=== PATIENT | male | born 1990 | race Caucasian/White ===

== ENCOUNTER 2025-04-27 15:04 | Emergency (ER) | payer BC, SELFPAY ==
[2025-04-27 15:05] VITALS: BP 148/101; PULSE 109; RESP 20; TEMP 35.9; O2SAT 97; BMI 31.5
--- NOTE | 2025-04-27 15:59 | EX.ED.DYSGE1 ---
HPI History of Present Illness Chief Complaint: Suicidal Narrative Narrative: Patient is a 35-year-old male with past medical history of asthma who presents to the emergency department chief complaint of suicidal ideation. He states that lately he has been anxious and depressed and states that he got an argument with his earlier today and notes that he went to the park with a box sorter with a plan to harm himself. When inquired about how he plans to do so he states that he was going to cut his wrist. Patient states that he scared himself out of it decided to call the hotline and they ultimately called the police who showed up to have him brought here for further evaluation management. He states that back in his early 20s during college he was hospitalized for anxiety but states that he is not been hospitalized for suicidal ideations. [facility] Medical History Asthma Home Medications ?Medication ?Instructions ?Recorded ?Last Taken ?Type albuterol sulfate 90 mcg/actuation inhalation 04/27/25 Unknown History aerosol inhaler fluticasone 100 mcg-salmeterol 50 1 ea inhalation BID 04/27/25 Unknown History mcg/dose blistr powdr for inhalation Allergy/AdvReac Type Severity Reaction Status Date / Time No Known Allergies Allergy Verified 04/27/25 15:06 Social History Smoking Status: Never smoker ROS ROS ED ROS Narrative Constitutional: Denies headache, fevers, chills, lightness, Eyes: Denies change in vision double vision blurry vision Cardiovascular: Denies chest pain Respiratory: Denies coughing wheezing shortness of breath Abdomen: Denies abdominal pain nausea vomit diarrhea : Denies any urinary symptoms Neurological: Denies numbness, weakness, tingling Musculoskeletal: Denies back pain Skin: Denies rashes or lesions EXAM Physical Exam Narrative Exam Narrative: General: Patient was lying in bed rest comfortably did not appear to be acute distress Head: Atraumatic, normocephalic Eyes: PERRL bilaterally, EOMI bilaterally Neck: Soft, supple, trachea midline Cardiovascular: Patient patient tachycardic with regular rhythm Respiratory: Clear to auscultation bilaterally Abdomen: Soft, nondistended, nontender to palpation Extremities: +5/5 strength noted in the bilateral upper and lower extremities Neurological: Patient follow commands and that he was at [facility] year is 2024 Skin: Warm, dry, intact no rashes or lesions noted Const Vital Signs: 04/27/25 15:05 04/27/25 16:33 Temperature 96.7 F L Temperature Source Temporal Pulse Rate 109 H Respiratory Rate 20 H 18 Blood Pressure 148/101 H Blood Pressure Mean 116 Pulse Ox 97 Oxygen Delivery Method Room Air MDM MDM MDM Narrative Medical decision making narrative: Patient is a 35-year-old male who presented to the emergency department the chief complaint of suicidal ideation. On the differential diagnose includes but not limited to anxiety, depression, suicidal ideation. Once workup is obtained reviewed social work will evaluate the patient. Patient CBC was reviewed showed no evidence leukocytosis white blood count 10.3, hemoglobin was stable at 15.5, platelet count normal at 382. Patient sodium normal 139, potassium normal at 4, creatinine normal at 1.08. Patient's drug screen was presumptive positive for cannabis alcohol level less than 10. Patient was evaluated by the social work team and they are able to safety plan him. He starts counseling tomorrow. Patient would like to go home and is agreeable this plan all question concerns answered he is discharged home in stable condition. Lab Data Labs: Laboratory Results - last 24 hr 04/27/25 04/27/25 16:00 16:25 WBC 10.3 RBC 5.06 Hgb 15.5 Hct 43.8 MCV 86.6 MCH 30.6 MCHC 35.4 RDW Std Deviation 38.7 RDW Coeff of Rosa 12.2 Plt Count 382 MPV 9.1 Immature Gran % (Auto) 0.500 Neut % (Auto) 61.6 Lymph % (Auto) 25.5 Tyler % (Auto) 7.9 Eos % (Auto) 3.7 Baso % (Auto) 0.8 Absolute Neuts (auto) 6.4 Absolute Lymphs (auto) 2.63 Nucleated RBC % 0 Sodium 139 Potassium 4.0 Chloride 101 Carbon Dioxide 23.7 Anion Gap 15 BUN 21 H Creatinine 1.08 Estim Creat Clear Calc 111.97 Est GFR (MDRD) Non-Af 91 BUN/Creatinine Ratio 19.2 Glucose 96 Calcium 9.7 Urine Opiates Screen NEGATIVE U Buprenorphine Qual NEGATIVE Ur Oxycodone Screen NEGATIVE Urine Methadone Screen NEGATIVE Urine Fentanyl Screen NEGATIVE Ur Barbiturates Screen NEGATIVE Ur Phencyclidine Scrn NEGATIVE Ur Amphetamines Screen NEGATIVE U Benzodiazepines Scrn NEGATIVE Urine Cocaine Screen NEGATIVE U Cannabinoids Screen PRESUMPTIVE POSITIVE Ethyl Alcohol < 10.1 Discharge Plan Triage Chief Complaint: Suicidal ED Provider: Ravi Dawson Dx/Rx/DC Orders Clinical Impression: Depression Prescriptions: No Action fluticasone propion-salmeterol 100-50 mcg/dose blister with device 1 ea inhalation BID albuterol sulfate 90 mcg/actuation HFA aerosol inhaler inhalation Primary Care Provider: MECHELLE HUYNH Referrals: NOT,DEFINED [Non-Staff] - Activity Restrictions/Additional Instructions: Follow-up at your counseling appointment. You were also provided resources by social work. Return with worsening symptoms or any other concerns. Print Language: [place] Disposition Disposition: Home, Self Care
[2025-04-27 16:30] LABS: Absolute Lymphocyte Count 2.63 X10^3/uL (0.83-4.51); Absolute Neutrophil Count 6.4 X10^3/uL (2.0-7.7); Basophil# 0.08 X10^3/uL; Basophil% 0.8 % (0-1); Eosinophil# 0.38 X10^3/uL; Eosinophils% 3.7 % (0-5); Hematocrit 43.8 % (40-54); Hemoglobin 15.5 g/dL (13.0-16.5); Lymphocyte # 2.63 X10^3/ul (0.83-4.51); Lymphocyte % 25.5 % (19-41); Mean Corp Hgb Conc 35.4 g/dL (32-36); Mean Corpuscular Hgb 30.6 pg (27.0-32.0); Mean Corpuscular Volume 86.6 fL (80-94); Mean Platelet Vol. 9.1 fl (6.2-12.0); Monocyte# 0.82 X10^3/uL; Monocyte% 7.9 % (0-10); NRBC Flagged by Analyzer 0 % (0-5); Neutrophil # 6.37 X10^3/uL (2.7-7.7); Neutrophil % 61.6 % (47-70); Platelet Count 382 K/mm3 (150-450); RBC Distribution Width CV 12.2 % (11.6-14.6); RBC Distribution Width SD 38.7 fl (35.1-43.9); Red Blood Count 5.06 M/mm3 (4.6-6.2); White Blood Count 10.3 K/mm3 (4.4-11.0)
[2025-04-27 16:33] VITALS: RESP 18
[2025-04-27 17:12] LABS: Alcohol, Blood (Medical)-Serum < 10.1 mg/dL (<=10.0); Anion Gap 15 (5-15); BUN 21 mg/dL (4-19); BUN/Creat Ratio 19.2 RATIO (10-20); Calcium,Total 9.7 mg/dL (7.6-11.0); Carbon Dioxide 23.7 mmol/L (21.0-32.0); Chloride 101 mmol/L (98-108); Creatinine, Serum 1.08 mg/dL (0.70-1.20); EST Glomerular Filtration Rate 91 (>60); Estimated Creatinine Clearance 111.97 ml/min (50-250); Glucose 96 mg/dL (70-99); Sodium Level 139 mmol/L (133-145)
--- NOTE | 2025-04-27 18:03 | PCA ---
Patient brought in a set of keys with personal belongings. The keys were given to the patients , Lissy Chanel, with patient's permission at 1800 on 04/27/2025.
[2025-04-27 18:18] LABS: Amphetamine Urine NEGATIVE (<1000 ng/mL); Barbiturate Urine NEGATIVE (< 200 ng/mL); Benzodiazepine Urine NEGATIVE (< 200 ng/mL); Buprenorphine Urine NEGATIVE (< 200 ng/mL); Cocaine Urine NEGATIVE (< 300 ng/mL); Fentanyl, Urine NEGATIVE; Methadone Urine NEGATIVE (< 300 ng/mL); Opiates Urine NEGATIVE (< 300 ng/mL); Oxycodone, Urine NEGATIVE (< 100 ng/mL); PCP Urine NEGATIVE (< 25 ng/mL); THC Urine PRESUMPTIVE POSITIVE (< 50 ng/mL)
--- NOTE | 2025-04-27 18:25 | CM.ED ---
Social Work Psychiatric Assessment Reason for consult: suicidal Informant(s): patient, medical records, police via pink slip Chief Complaint: Patient presented to [facility] ED via police and pink slip due to police reportedly finding patient in a park with a jukebox operator. Patient reportedly stated in triage that patient thought about using the jukebox operator for self harm after an argument with patient's . Per Dr. Dawson's note, patient had a plan to harm self by cutting patient's wrist. Patient states scaring self, calling the suicide hotline, and then being transported to [facility] ED via police. Patient stated not being able to follow through with cutting patient's wrist due to struggling with RNs drawing blood for testing. Patient endorsed sleeping well and patient endorsed not having not having much to eat the last few days. Patient denied having hallucinations or delusions, as well as denied family history of suicide. Patient stated feeling hopeless and helpless. Patient reported feeling as if patient was shoved in a corner by the fight with patient's and feeling a sense of shame, guilt, and disappointment in self when patient was choosing suicide. Patient stated how patient's cheondoism beliefs are what patient is holding onto the most when choosing not to engage in suicidal behaviors. Patient stated multiple times during conversation that patient really just miss my parents and I would never want to leave my son so early in his life. Patient stated knowing the risks and consequences of patient's behaviors, being grateful for the support system patient had today, and being disappointed in self for not hitting the brakes sooner. Marital/Social History/Sexual Orientation/Gender Identity: patient is a 35 year old straight male who has been to patient's for 5 years. Patient reports having a 16 month old son. Patient reports being Judaism. Patient reported having difficulty in patient's marriage and feels as if patient and patient's will get a divorce soon due to discussions about divorce occurring over the last few months. Living Situation: patient lives with patient's and son in the basement of a home. Also living in this home are reportedly patient's 's mother, sister, and sister's partner. Support/Resources: patient identified patient's as patient's biggest supporter. History: none Education and Employment History: patient reports having a bachelor's in history and working for [employer] since June 2021. Mental Health Treatment/History: patient reports having anger issues according to many teachers, guidance counselors, counselors, etc. Patient states doing lots of counseling with last counseling being about 3 years ago. Patient reports starting with [facility] at [facility] tomorrow for anger management work (1700 appointment time.) Patient currently takes no medication and has no psychiatrist. Patient reports feeling uneasy regarding medication. Patient stated patient's mother had patient do anger management counseling when patient was younger. Patient stated patient and patient's have also been in couples counseling for about 6 months. Triggers/Stressors to mental health: patient reports today's argument with patient's to be stressful, as well as patient's aunt passing away in February. Patient reports patient lacked patience and understanding earlier with patient's . Patient also reported having difficulty with coping with the passing of patient's mother (in 1996) and patient's father (in 2011). Coping Skills: patient listed coping skills to be eating, TV, THC edibles (with last use being Monday 04/23), and pornography. History of Abuse (physical/sexual/verbal/emotional): patient denies any history of abuse. Substance Abuse Current/Historical: patient states last drinking wine at [place] and using THC edibles on occasion. Risk to Self/Others: ? Suicidal (thought/plan/intent/attempt): see C-SSRS for details. ? Access to Lethal Means: patient stated throwing patient's jukebox operator into a field while on the phone with the suicide hotline and patient states doing most of the cooking and having access to kitchen knives. Patient denies access to firearms and medications. ? Homicidal (thought/plan/intent/attempt): patient denies current or historical homicidal thoughts, plans, intent, or attempts. ? History of Violence (self/others/objects): patient denies violence toward self, but stated yelling at patient's today and having moments where patient will punch objects when upset. Mental Status Exam: ??? Orientation: patient oriented to time, place, and person. ??? Memory: fair Appearance/General Behavior: clean/appropriate, directable Mood/Affect: appropriate, avoided eye contact, tearful Communication Pattern: responds to questions Thought Process: appropriate, fragmented at times. General Intellectual Functioning: average Judgment: good Insight: good [place] SS[place] SUICIDAL IDEATION Ask questions 1 and 2. If both are negative, proceed to ?Suicidal Behavior? section. If the answer question 2 is yes, ask questions 3, 4, 5.? If the answer to question 1 and/or 2 is ?yes?, complete ?Intensity of Ideation? section below. 1. Wish to be ? Subject endorses thoughts about a wish to be or not alive anymore or wish to fall asleep and not wake up. Have you wished you were or wished you could go to sleep and not wake up? Lifetime: Time He/She Mears Most Suicidal: ?yes Past 1 month: yes Please Describe if yes: ?patient stated general thoughts of wishing patient was . 2. Non-Specific Active Suicidal Thoughts General, non-specific thoughts of wanting to end one?s life/commit suicide (e.g., ?I?ve thought about killing myself?) without thoughts of ways to kills oneself/associated methods, intent, or plan during the assessment period.? Have you actually had any thoughts of killing yourself? Lifetime: Time He/She Mears Most Suicidal: ?yes Past 1 month: yes Please Describe if yes: patient reported having general thoughts of killing self. 3. Active Suicidal Ideation with Any Methods (Not Plan) without Intent to Act Subject endorses thoughts of suicide and has thought of at least one method during the assessment period.? This is different than a specific plan with time, place, or method details worked out (e.g., thought of method to kills self but not a specific plan).? Includes person who would say ?I thought about thanking an overdose, but I never made a specific plan as to when, where or how. I would actually do it, and I would never go through with it.? Have you been thinking about how you might do this? Lifetime: Time He/She Mears Most Suicidal: ?no Past 1 month:? yes Please Describe if yes: patient stated having thoughts based on social media avenues (overdosing, hanging, etc), but patient reported those avenues scare patient and patient would not pursue it further. 4. Active Suicidal Ideation with Some Intent to Act, without Specific Plan Active suicidal thoughts of kills oneself fand subject reports having some intent to act on such thoughts, as opposed to ?I have the thoughts but I definitely will not do anything about them.? Have you had these thoughts and had some intention of acting on them? Lifetime: Time He/She Mears Most Suicidal: no Past 1 month: yes Please Describe if yes: patient stated intending to act today with the jukebox operator, though not having a plan to do so. Patient stated feeling as if patient's backed me in a corner with their fight. 5. Active Suicidal Ideation with Specific Plan and Intent Thoughts of kills oneself with details of plan fully or partially worked out and subject has some intent to care it out. Have you started to work out or worked out the details of how to kill yourself? Do you intend to carry out this plan? Lifetime: Time He/She Mears Most Suicidal: no Past 1 month: ?no Please Describe if yes: N/A INTENSITY OF IDEATION The following feature should be rated with respect to the most sever type of ideation (i.e., 1-5 from above, with 1 being the least severe and 5 being the most severe). Ask about time he/she/they were feeling the most suicidal.? Lifetime - Most Severe Ideation: Type # (1-5): Description: Recent - Most Severe Ideation: Type # (1-5): Description: Frequency How many times have you had these thoughts? Lifetime: (1) Less than once a week??? (2) Once a week?? (3)? 2-5 times in week??? (4) Daily or almost daily??? (5) Many times each day Recent, Past 1 month:? (1) Less than once a week??? (2) Once a week?? (3)? 2-5 times in week??? (4) Daily or almost daily??? (5) Many times each day Duration When you have the thoughts, how long do they last? Lifetime: (1) Fleeting - few seconds or minutes? (2) Less than 1 hour/some of the time? (3) 1-4 hours/a lot of time? 4) 4-8 hours/most of day? (5) More than 8 hours/persistent or continuous Recent, Past 1 month:? (1) Fleeting - few seconds or minutes? (2) Less than 1 hour/some of the time? (3) 1-4 hours/a lot of time? 4) 4-8 hours/most of day? (5) More than 8 hours/persistent or continuous Controllability Could/can you stop thinking about killing yourself or wanting to if you want to? Lifetime:? (1) Easily able to control thoughts?? (2) Can control thoughts with little difficulty??? (3) Can control thoughts with some difficulty??? 4) Can control thoughts with a lot of difficulty? (5) Unable to control thoughts?? (0) Does not attempt to control thoughts Recent, Past 1 month: (1) Easily able to control thoughts?? (2) Can control thoughts with little difficulty??? (3) Can control thoughts with some difficulty??? 4) Can control thoughts with a lot of difficulty? (5) Unable to control thoughts?? (0) Does not attempt to control thoughts Deterrents Are there things - anyone or anything (e.g., family, restoration, pain of ) - that stopped you from wanting to or acting on thoughts of committing suicide? Lifetime:? (1) Deterrents definitely stopped you from attempting suicide? (2) Deterrents probably stopped you?? (3) Uncertain that deterrents stopped you? (4) Deterrents most likely did not stop you? (5) Deterrents definitely did not stop you?? 0) Does not apply??? Recent:??? (1) Deterrents definitely stopped you from attempting suicide? (2) Deterrents probably stopped you?? (3) Uncertain that deterrents stopped you? (4) Deterrents most likely did not stop you? (5) Deterrents definitely did not stop you?? 0) Does not apply??? Reasons for Ideation What sort of reasons did you have for thinking about wanting to or killing yourself? Was it to end the pain or stop the way you were feeling (in other words you couldn?t go on living with this pain or how you were feeling) or was it to get attention, revenge or a reaction from others? Or both? Lifetime: (1) Completely to get attention, revenge or a reaction from?? (2) Mostly to get attention, revenge or a reaction from others? (3) Equally to get attention, revenge or a reaction from others? and to end/stop the pain?? ( 4) Mostly to end or stop the pain (you couldn?t go on living with the pain or how you were feeling)??? (5) Completely to end or stop the pain (you couldn?t go on living with the pain or? how you were feeling)??? (0)? Does not apply? Recent: (1) Completely to get attention, revenge or a reaction from?? (2) Mostly to get attention, revenge or a reaction from others? (3) Equally to get attention, revenge or a reaction from others? and to end/stop the pain??? (4) Mostly to end or stop the pain (you couldn?t go on living with the pain or how you were feeling)?? (5) Completely to end or stop the pain (you couldn?t go on living with the pain or? how you were feeling)?? (0)? Does not apply? SUICIDAL BEHAVIOR Actual Attempt: A potentially self-injurious act committed with at least some wish to , as a result of act.? Behavior was in part thought of as method to kill oneself.? Intent does not have to be 100%.? If there is any intent/desire to associated with the act, then it can be considered an actual suicide attempt.? There does not have to be any injury of harm, just the potential for injury or harm.? If person pulls trigger while gun is in mouth, but gun is broken so no injury results, this is considered an attempt.? Inferring intent:? Even if an individual denies intent/wish to , it may be inferred clinically from the behavior or circumstances.? For example, a highly lethal act that is clearly not an accident so no other intent but suicide can be inferred (e.g. gunshot to head, jumping from window of a high floor/story).? Also, if someone denies intent to , but they thought that what they did could be lethal, intent may be inferred.? Have you made a suicide attempt? Have you done anything to harm yourself? Have you done anything dangerous where you could have ? What did you do? Did you as a way to end your life? Did you want to (even a little) when you ? Were you trying to end your life when you ? Or did you think it was possible you could have from ? Or did you do it purely for other reasons/without ANY intention of killing yourself like to relieve stress, feel better, get sympathy, or get something else to happen)? (Self -Injurious Behavior without suicidal intent) Lifetime: no Past 3 months: no If yes, describe: N/A Total # of Attempts in His/Her Lifetime: N/A Total # of attempts in Past 3 months: N/A Has person engaged in Non-Suicidal Self-Injurious Behavior? Lifetime: no Past 3 months: no Interrupted Attempt: When the person is interrupted (by an outside circumstance) from starting the potentially self-injurious act (if not for that, actual attempt would have occurred).? Overdose: Person has pills in hand but is stopped from ingesting. Once they ingest any pills, this becomes an attempt rather than an interrupted attempt. Shooting: Person has gun pointed toward self, gun is taken away by someone else, or is somehow prevented from pulling trigger. Once they pull the trigger, even if the gun fails to fire, it is an attempt. Jumping: Person is poised to jump, is grabbed and taken down from ledge.? Hanging: Person has noose around neck but has not yet started to hang self -is stopped from doing so.? Has there been a time when you started to do something to end your life but someone or something stopped you before you did anything? Lifetime: no Past 3 months: no If yes, describe: ?N/A Total # of interrupted attempts in His/Her Lifetime: N/A Total # of interrupted attempts in Past 3 months: N/A Aborted or Self-Interrupted Attempt:? When person begins to take steps toward making a suicide attempt, but stops themselves before they have actually engaged in any self-destructive behavior. Examples are like interrupted attempts, except that the individual stops him/herself, instead of being stopped by something else. Has there been a time when you started to do something to try to end your life, but you stopped yourself before you did anything? Lifetime: no Past 3 months: yes If yes, describe: patient took a jukebox operator today to a park with intent to cut wrists and by suicide. Total # of aborted or self-interrupted attempts in His/Her Lifetime: N/A Total # of aborted or self-interrupted attempts in Past 3 months: 1 Preparatory Acts or Behavior:? Acts or preparation towards imminently making a suicide attempt. This can include anything beyond a verbalization or thought, such as assembling a specific method (e.g., buying pills, purchasing a gun) or preparing for one?s by suicide (e.g., giving things away, writing a suicide note). Have you taken any steps towards making a suicide attempt or preparing to kill yourself (such as collecting pills, getting a gun, giving valuables away or writing a suicide note)? Lifetime: no Past 3 months: no If yes, describe: ?N/A Total # of preparatory acts in His/Her Lifetime: N/A Total # of preparatory acts in Past 3 months: N/A Lethality/Medical Damage:??? 0. No physical damage or very minor physical damage (e.g., surface scratches). 1. Minor physical damage (e.g., lethargic speech; first-degree gooden; mild bleeding; sprains). 2. Moderate physical damage; medical attention needed (e.g., conscious but sleepy, somewhat responsive; second-degree gooden; bleeding of major vessel). 3. Moderately severe physical damage; medical hospitalization and likely intensive care required (e.g., comatose with reflexes intact; third-degree gooden less than 20% of body; extensive blood loss but can recover; major fractures). 4. Severe physical damage; medical hospitalization with intensive care required (e.g., comatose without reflexes; third-degree gooden over 20% of body; extensive blood loss with unstable vital signs; major damage to a vital area). 5. Most Recent attempt Date: Code: Most Lethal Attempt Date: Code: Initial/First Attempt Date: Code: Potential Lethality: Only Answer if Actual Lethality=0 Likely lethality of actual attempt if no medical damage (the following examples, while having no actual medical damage, had potential for very serious lethality: put gun in mouth and pulled the trigger but gun fails to fire so no medical damage; laying on train tracks with oncoming train but pulled away before run over). 0 = Behavior not likely to result in injury 1 = Behavior likely to result in injury but not likely to cause 2 = Behavior likely to result in despite available medical care Most Recent Attempt Code: Most Lethal Attempt Code: Initial/First Attempt Code: Assessment Summary: due to patient's ability to name reasons for living, having responsibility to family, having a fear of , having strong cheondoism beliefs, having no suicidal history, and having a follow up with a counselor tomorrow, it is believed patient will be safe to safety plan and return home. Spoke with doctor who agrees. Plan: discharge home with safety plan Tg Garcia, CHARTER BOAT OPERATOR, PRODUCTION CONTROL EXPEDITER
--- NOTE | 2025-04-27 18:29 | CM.ED ---
Social work After talking with Dr. Dawson, it was agreed upon that patient could be discharged with a safety plan. Patient completed safety plan with SW and then patient's , Lissy, was called to review safety plan ([phone]). Dr. Dawson updated and Aleah CASANOVA updated. Safety plan copy added to patient's chart. Tg Garcia, RIVET THROWER, TIERCE FILLER
[2025-04-27 18:33] VITALS: BP 158/90; PULSE 78; RESP 18; TEMP 36.6; O2SAT 96
--- NOTE | 2025-04-28 13:59 | CM.ED ---
Social Work SW called patient to follow up on safety plan that was completed yesterday. SW left message as patient did not answer. Patient called back within 30 minutes. Patient states he is doing well today, that he and his worked through the safety plan including getting sharp objects locked up. Patient stated he felt a little embarrassed by his actions yesterday, SW reassured patient that coming to the hospital for help was the right thing to do. . Patient stated that he was also planning to attend his counseling session today, that he went into work early so he was able to leave for his appointment. Patient thanked social and political studies professor for the follow up call. Patient was encouraged to return should his symptoms return. Patient voiced understanding. Emeli Gonzalez, WEIGHT AND BALANCE CONTROL AGENT, FILM PROCESS OPERATOR
== END 2025-04-27 18:34 | disposition home or self-care (01) ==
PROVIDERS: Emergency Provider Emergency Medicine; Visit Provider Emergency Medicine
DX: R45.851 Suicidal ideations (principal); F32.A Depression, unspecified; F41.9 Anxiety disorder, unspecified; J45.909 Unspecified asthma, uncomplicated
CPT/HCPCS: 80048; 80307; 82077; 85025; 99283

== ENCOUNTER 2025-05-26 09:27 | Emergency (ER) | payer BC, SELFPAY ==
[2025-05-26 09:28] VITALS: BP 181/107; PULSE 130; RESP 22; TEMP 36.6; O2SAT 98; BMI 33.7
[2025-05-26 10:10] LABS: Hematocrit 43.9 % (40-54); Hemoglobin 15.1 g/dL (13.0-16.5); Immature Granulocytes Count 0.050 X10^3/uL (0.0-0.0); Mean Corp Hgb Conc 34.4 g/dL (32-36); Mean Corpuscular Volume 86.2 fL (80-94); Mean Platelet Vol. 9.1 fl (6.2-12.0); NRBC Flagged by Analyzer 0 % (0-5); Platelet Count 375 K/mm3 (150-450); RBC Distribution Width CV 11.9 % (11.6-14.6); RBC Distribution Width SD 37.6 fl (35.1-43.9); Red Blood Count 5.09 M/mm3 (4.6-6.2); White Blood Count 8.6 K/mm3 (4.4-11.0)
--- NOTE | 2025-05-26 10:10 | EX.ED.DYSGE1 ---
HPI History of Present Illness Chief Complaint: Suicidal Informant: patient Narrative Narrative: Brought in by PD for mental health evaluation. Patient reports had argument with his spouse this morning stating it was secondary to stupid things. There was no physical altercation and he states he wanted to come to the hospital get evaluated he was walking his spouse called police who brought him here for evaluation. He states he is not feeling well secondary to police being involved in having to pat him down. He denies suicidal or homicidal ideations. Denies alcohol use. Intermittent marijuana use. He states he is seeing a therapist since being evaluated a month ago on a weekly basis for some similar after an argument with spouse. He states his therapist was on vacation last week therefore have not seen them for 2 weeks but does have an appointment today. He states he did not want to wait for his appointment and wanted to talk to somebody today. 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 He had a safety plan and was referred to counseling. When discussed with him his stress he states mostly with his relationship however does have stress all around. [facility] Medical History Asthma Home Medications ?Medication ?Instructions ?Recorded ?Last Taken ?Type albuterol sulfate 90 mcg/actuation inhalation 04/27/25 Unknown History aerosol inhaler fluticasone 100 mcg-salmeterol 50 1 ea inhalation BID 04/27/25 Unknown History mcg/dose blistr powdr for inhalation Allergy/AdvReac Type Severity Reaction Status Date / Time No Known Allergies Allergy Verified 04/27/25 15:06 Social History Smoking Status: Never smoker ROS ROS ED Constitutional Constitutional ED: Denies fever(s) Cardiovascular Cardiovascular: Denies chest pain Respiratory/Chest Respiratory/Chest: Denies cough Gastrointestinal Gastrointestinal: Denies diarrhea or vomiting Musculoskeletal Musculoskeletal: Denies none Integumentary Denies rash or wounds Neurologic Neurologic: Denies weakness Psychiatric Psychiatric: Reports other Details: Stress, denies suicidal or homicidal ideations. EXAM Physical Exam Const Vital Signs: 05/26/25 09:28 05/26/25 10:43 05/26/25 11:38 Temperature 97.8 F 98 F Temperature Source Temporal Pulse Rate 130 H 99 91 Respiratory Rate 22 H 18 16 Blood Pressure 181/107 H 151/82 H 148/98 H Blood Pressure Mean 131 105 114 Pulse Ox 98 98 97 Oxygen Delivery Method Room Air Room Air Positive well nourished and well developed General Appearance ED: well developed and NAD HEENT Reports moist mucous membranes normocephalic and atraumatic Eyes General Eye ED: Yes normal appearance of both eyes Neck full ROM Chest Wall Chest: Negative for tenderness Resp normal respiratory effort and normal air movement Effort and Inspection: symmetric chest movement; Negative for respiratory distress Cardio regular rate, regular rhythm and no murmurs Peripheral Pulses: pulses 2+ throughout GI normal to inspection, nondistended, normoactive bowel sounds and non-tender Palpation: Negative for guarding or rebound tenderness present Extremity normal to inspection General Extremety ED: Negative for edema or tenderness General Extremity: Negative for edema Neuro oriented x3 and no sensory deficits noted Sensorium / Orientation: awake and alert Psych Psych Narrative: Patient vague on discussion however denies homicidal or suicidal ideations. Denies any auditory or visual loose nations. Skin no rashes or lesions noted and no wounds MDM MDM MDM Narrative Medical decision making narrative: Interventions / MDM: Differential diagnosis: Acute stress disorder Diagnosis considered but do not suspect: N/A My EKG interpretation: N/A Imaging independently reviewed and interpreted by myself: N/A External documents reviewed: N/A Test considered but not ordered:N/A ED course: Patient tachycardic arrival however during my exam appears normal rate. Nurse confirmed with triage nurse when police brought him in he had no suicidal ideations he was not pink slipped. He denies suicidal homicidal ideations. Is here for mental health evaluation. He admits to wanting to talk to somebody in the ED. Medical clearance labs will be obtained and will have social work discussed with him in the ED. 1130: Medically cleared. Evaluated by non licensed operator in the ED. Safety plan was made. He has appointment with his therapist at 5 PM for which she will keep. Heart rate blood pressure improved without any intervention. Return precautions discussed with patient. Re-evaluation: stable Disposition discussed with patient/family/significant other: Patient Case discussed with consulting clinician: License social media campaign manager This note was generated with [employer] dictation software. It may contain incorrect words, spelling, and punctuation that were not noted in checking the note before signing. Lab Data Attestation: I reviewed the patient's lab results. Labs: Laboratory Results - last 24 hr 05/26/25 09:49 WBC 8.6 RBC 5.09 Hgb 15.1 Hct 43.9 MCV 86.2 MCH 29.7 MCHC 34.4 RDW Std Deviation 37.6 RDW Coeff of Rosa 11.9 Plt Count 375 MPV 9.1 Immature Gran % (Auto) 0.600 Neut % (Auto) 45.7 L Lymph % (Auto) 34.1 [place] % (Auto) 7.4 Eos % (Auto) 10.9 H Baso % (Auto) 1.3 H Absolute Neuts (auto) 3.9 Absolute Lymphs (auto) 2.92 Nucleated RBC % 0 Sodium 140 Potassium 4.2 Chloride 105 Carbon Dioxide 20.9 L Anion Gap 14 BUN 16 Creatinine 1.10 Estim Creat Clear Calc 113.50 Est GFR (MDRD) Non-Af 89 BUN/Creatinine Ratio 14.2 Glucose 135 H Calcium 9.1 Urine Opiates Screen NEGATIVE U Buprenorphine Qual NEGATIVE Ur Oxycodone Screen NEGATIVE Urine Methadone Screen NEGATIVE Urine Fentanyl Screen NEGATIVE Ur Barbiturates Screen NEGATIVE Ur Phencyclidine Scrn NEGATIVE Ur Amphetamines Screen PRESUMPTIVE POSITIVE U Benzodiazepines Scrn NEGATIVE Urine Cocaine Screen NEGATIVE U Cannabinoids Screen PRESUMPTIVE POSITIVE Ethyl Alcohol < 10.1 Discharge Plan Triage Chief Complaint: Suicidal ED Provider: Amari Fagan Dx/Rx/DC Orders Clinical Impression: Acute stress disorder, History of marijuana use Instructions: Stress Relief: Activities Prescriptions: No Action fluticasone propion-salmeterol 100-50 mcg/dose blister with device 1 ea inhalation BID albuterol sulfate 90 mcg/actuation HFA aerosol inhaler inhalation Primary Care Provider: MECHELLE HUYNH Referrals: MECHELLE HUYNH [Other] - 1-2 Weeks NOT,DEFINED [Non-Staff] - Activity Restrictions/Additional Instructions: You were evaluated and safety plan made. Keep your therapist appointment today. He develop any worsening symptoms or thoughts of hurting yourself, return to the ED for reevaluation. Print Language: Czech Disposition Disposition: Home, Self Care Discharge Date/Time: 05/26/25 11:39
--- NOTE | 2025-05-26 10:23 | ED.RN ---
No sitter needed per Dr Fagan
--- NOTE | 2025-05-26 10:23 | ED.RN ---
No sitter needed per Dr Fagan
[2025-05-26 10:35] LABS: Anion Gap 14 (5-15); BUN 16 mg/dL (4-19); BUN/Creat Ratio 14.2 RATIO (10-20); Calcium,Total 9.1 mg/dL (7.6-11.0); Carbon Dioxide 20.9 mmol/L (21.0-32.0); Chloride 105 mmol/L (98-108); Estimated Creatinine Clearance 113.50 ml/min (50-250); Glucose 135 mg/dL (70-99); Potassium 4.2 mmol/L (3.3-5.1)
[2025-05-26 10:43] VITALS: BP 151/82; PULSE 99; RESP 18; O2SAT 98
[2025-05-26 11:08] LABS: Barbiturate Urine NEGATIVE (< 200 ng/mL); Benzodiazepine Urine NEGATIVE (< 200 ng/mL); PCP Urine NEGATIVE (< 25 ng/mL); THC Urine PRESUMPTIVE POSITIVE (< 50 ng/mL)
[2025-05-26 11:14] LABS: Alcohol, Blood (Medical)-Serum < 10.1 mg/dL (<=10.0)
[2025-05-26 11:38] VITALS: BP 148/98; PULSE 91; RESP 16; TEMP 36.6; O2SAT 97
--- NOTE | 2025-05-26 14:44 | CM.ED ---
? Social Work Psychiatric Assessment Reason for consult: Mental Health? Informant(s): ?Patient and medical record Chief Complaint: ??Patient presented to the ED after an argument with his . Patient states he asked his for a ride to the hospital which she was unable to do, he began walking and she called the police who brought patient to the ED.?? Patient states that he is currently seeing a counselor and has an appointment later today but felt he needed to talk to someone earlier.? Patient denies suicidal or homicidal ideations, denies auditory or visual hallucinations, denies appetite or sleep disturbance.? Patient states that he does not have any mental health diagnosis and is not prescribed any medications. ??Patient states that he ?apparently flies off the handle? ?when he is presented with confrontation.? Patient was tearful during interview, had a difficult time expressing his thoughts as he answered in short or one word answers. Patient was distracted, texting with his during visit.? IOP/PHP program was offered to patient , patient declined same but was willing to take information.? Patient agreed to attend his scheduled counseling session later to day and completed a safety plan.? Marital/Social History: ?Patient is a 35 year old male, since 2021 Living Situation: Patient lives in the basement of his [place] house with his and child.? In the upstairs of the house is VAL[place]Y, ELDA and a friend.?? Support/Resources: ?friends and family History: None Education and Employment History: Patient graduated from [employer] with Bachelors degree in History. Is working at [employer].? Has been there for a little over 4 years.? Mental Health Treatment/History: ??Patient has been seeing a counselor at [facility] for about a month.? Patient denies any mental health diagnosis and is not on any medication.? Triggers/Stressors to mental health: ?arguments with spouse, when things don?t go the way that is expected. Coping Skills: ?try to leave situation, light aerobic exercises History of Abuse (physical/sexual/verbal/emotional): denies Substance Abuse Current/Historical: ?occasional THC, denies alcohol or illicit drug use. Risk to Self/Others: ? Suicidal (thought/plan/intent/attempt): denies ? Access to Lethal Means: n/a ? Homicidal (thought/plan/intent/attempt): denies ? History of Violence (self/others/objects): ?denies Mental Status Exam: ??? Orientation:?Patient alert and oriented x 3 ??? Memory: ?intact Appearance/General Behavior: ?clean, slumped, distracted Mood/Affect: despondent, depressed, tearful Communication Pattern: mumbled, difficult to get answers, did not volunteer information, many one-word answers Thought Process: ??appropriate General Intellectual Functioning:?? ?average Judgment: ?fair Insight: ?fair Plan?? Patient denies any suicidal or homicidal ideations, denies sleep or appetite disturbance, denies auditory or visual hallucinations.?? Patient is seeing a counselor weekly.? Physician consulted and in agreement with safety plan. Patient has an appointment with counselor later today, information given on IOP/PHP program as patient was not willing to commit to attend at this time. Emeli Gonzalez, LISW, CORPORATE BOND TRADER
--- NOTE | 2025-05-26 14:44 | CM.ED ---
? Social Work Psychiatric Assessment Reason for consult: Mental Health? Informant(s): ?Patient and medical record Chief Complaint: ??Patient presented to the ED after an argument with his . Patient states he asked his for a ride to the hospital which she was unable to do, he began walking and she called the police who brought patient to the ED.?? Patient states that he is currently seeing a counselor and has an appointment later today but felt he needed to talk to someone earlier.? Patient denies suicidal or homicidal ideations, denies auditory or visual hallucinations, denies appetite or sleep disturbance.? Patient states that he does not have any mental health diagnosis and is not prescribed any medications. ??Patient states that he ?apparently flies off the handle? ?when he is presented with confrontation.? Patient was tearful during interview, had a difficult time expressing his thoughts as he answered in short or one word answers. Patient was distracted, texting with his during visit.? IOP/PHP program was offered to patient , patient declined same but was willing to take information.? Patient agreed to attend his scheduled counseling session later to day and completed a safety plan.? Marital/Social History: ?Patient is a 35 year old male, since 2021 Living Situation: Patient lives in the basement of his [place] house with his and child.? In the upstairs of the house is [place]Y, ELDA and a friend.?? Support/Resources: ?friends and family History: None Education and Employment History: Patient graduated from [employer] with Bachelors degree in History. Is working at [employer].? Has been there for a little over 4 years.? Mental Health Treatment/History: ??Patient has been seeing a counselor at [facility] for about a month.? Patient denies any mental health diagnosis and is not on any medication.? Triggers/Stressors to mental health: ?arguments with spouse, when things don?t go the way that is expected. Coping Skills: ?try to leave situation, light aerobic exercises History of Abuse (physical/sexual/verbal/emotional): denies Substance Abuse Current/Historical: ?occasional THC, denies alcohol or illicit drug use. Risk to Self/Others: ? Suicidal (thought/plan/intent/attempt): denies ? Access to Lethal Means: n/a ? Homicidal (thought/plan/intent/attempt): denies ? History of Violence (self/others/objects): ?denies Mental Status Exam: ??? Orientation:?Patient alert and oriented x 3 ??? Memory: ?intact Appearance/General Behavior: ?clean, slumped, distracted Mood/Affect: despondent, depressed, tearful Communication Pattern: mumbled, difficult to get answers, did not volunteer information, many one-word answers Thought Process: ??appropriate General Intellectual Functioning:?? ?average Judgment: ?fair Insight: ?fair Plan?? Patient denies any suicidal or homicidal ideations, denies sleep or appetite disturbance, denies auditory or visual hallucinations.?? Patient is seeing a counselor weekly.? Physician consulted and in agreement with safety plan. Patient has an appointment with counselor later today, information given on IOP/PHP program as patient was not willing to commit to attend at this time. Emeli Gonzalez, HORSE STUD MANAGER, DEVELOPMENT EDUCATOR
--- NOTE | 2025-05-27 10:25 | CM.ED ---
Social Work SW contacted patient to follow up from yesterdays visit to the ER and safety plan. Patient stated he was doing well today. Patient also confirmed that he went to his counseling appointment last evening. Patient was encouraged to return to the ED should his symptoms increase or he does not feel safe. Patient agreed wtht same. Emeli Gonzalez, MANAGER SMALL BUSINESS, CONSTRUCTION OR LEAK GANG LABORER
--- NOTE | 2025-05-27 10:25 | CM.ED ---
Social Work SW contacted patient to follow up from yesterdays visit to the ER and safety plan. Patient stated he was doing well today. Patient also confirmed that he went to his counseling appointment last evening. Patient was encouraged to return to the ED should his symptoms increase or he does not feel safe. Patient agreed wtht same. Emeli Gonzalez, CLIENT SERVER DEVELOPER, WASTE PAPER HAMMERMILL OPERATOR
== END 2025-05-26 11:39 | disposition home or self-care (01) ==
PROVIDERS: Emergency Provider Emergency Medicine; Visit Provider Emergency Medicine
DX: F43.0 Acute stress reaction (principal); F12.90 Cannabis use, unspecified, uncomplicated; J45.909 Unspecified asthma, uncomplicated
CPT/HCPCS: 80048; 80307; 82077; 85025; 99282